=== PATIENT | female | born 1940 | race Two or more races ===

== ENCOUNTER 2020-10-06 06:18 | Day surgery (SDC) | payer OTHER ==
[~2020-10-06 06:18] MED LIST: ADALAT CC30 MG PO; COZAAR100 MG PO; HORIZANT600 MG PO; METFORMIN HCL500 M3 PO; OXYBUTYNIN CHLO15 MG PO; OXYBUTYNIN PO; ZOCOR40 MG PO
[2020-10-06] MEDS ORDERED: KEFLEX750 MG PO (14:18)
[2020-10-06] MEDS ORDERED: ULTRACET PO (14:20)
== END 2020-10-06 15:25 | disposition home or self-care (01) ==
LOC: CIR.AMB 06:18
PROVIDERS: ATTEND Obstetrics & Gynecology Gynecology
DX: N32.81 Overactive bladder (principal); Z20.822 Contact with and (suspected) exposure to COVID-19
CPT/HCPCS: 64590; 64581; 95972; C1778; L8679